=== PATIENT | male | born 1985 | race Caucasian/White ===

== ENCOUNTER 2019-08-01 06:43 | Observation (INO) | payer SELFPAY ==
[~2019-08-01] VITALS: Ht 182.9 cm; Wt 85.4 kg
[2019-08-01 07:21] LABS: HEMOGLOBIN 14.5 g/dl (14.0-18.0); IMMATURE GRANULOCYTES 0.1 % (0.0-5.0); MEAN CELL VOLUME 87.9 fL CALC (80.0-100.0); MEAN CORPUSCULAR HGB 28.3 pG CALC (26.0-32.0); MEAN CORPUSCULAR HGB CONC 32.2 g/L CALC (32.0-36.0); NEUT# 4.81 thou/uL (1.82-7.42); RED BLOOD COUNT 5.12 mill/uL (4.70-6.10); RED CELL DISTRI WIDTH 12.7 % (11.5-15.5)
[2019-08-01] MEDS ORDERED: PROAIR HFA108 MCG/AC IN (07:49)
[2019-08-01 07:50] LABS: ALBUMIN 4.2 g/dL (3.2-5.0); ALKALINE PHOSPHATASE 120 u/l (38-126); ANION GAP 14 (6-22 (CALC)); BILIRUBIN, TOTAL 0.5 mg/dL (0.0-1.4); BUN 19 mg/dL (9-20); BUN/CREATININE RATIO 18 (12-20 (CALC)); CARBON DIOXIDE 31 mmol/l (22-30); CHLORIDE 97 mmol/l (95-108); CREATININE 1.1 mg/dL (0.7-1.3); GFR > 60 ML/MIN (>=60 (CALC)); GFR FOR AFR.AMER. > 60 ML/MIN (>=60 (CALC)); POTASSIUM 4.5 mmol/l (3.5-5.1); SGOT/AST 43 u/l (17-59); SODIUM 138 mmol/l (137-146); TOTAL PROTEIN 7.9 g/dL (6.3-8.2)
[2019-08-01 09:55] LABS: URINE BILIRUBIN - DIPSTICK NEGATIVE (NEGATIVE); URINE BLOOD DIPSTICK NEGATIVE (NEGATIVE); URINE COLOR YELLOW; URINE GLUCOSE - DIPSTICK NEGATIVE (NEGATIVE); URINE KETONE NEGATIVE (NEGATIVE); URINE LEUK ESTERASE NEGATIVE (NEGATIVE); URINE NITRITE - DIPSTICK NEGATIVE (Negative); URINE PROTEIN - DIPSTICK NEGATIVE (NEG-TRACE); URINE SPECIFIC GRAVITY 1.015; URINE UROBILINOGEN - DIPSTICK 0.2 E.U./dL (0.2)
[2019-08-01 10:12] LABS: BARBITURATES NEGATIVE (NEGATIVE); COCAINE NEGATIVE (NEGATIVE); METHADONE NEGATIVE (NEGATIVE); OXCYCODONE NEGATIVE (NEGATIVE); TETRAHYDROCANNABIONOL POSITIVE (NEGATIVE); TRICYLIC ANTIDEPRESSANTS NEGATIVE (NEGATIVE)
[2019-08-01 10:32] VITALS: BP 115/64
[2019-08-01 11:05] VITALS: BP 106/52
[2019-08-01 12:54] VITALS: BP 110/56
[2019-08-01 14:47] VITALS: BP 114/66
[2019-08-01 19:51] VITALS: BP 85/48
[2019-08-02 04:28] VITALS: BP 92/49
[2019-08-02 08:01] VITALS: BP 119/58
[2019-08-02] MEDS ORDERED: NEBULIZER COMPRESSOR (12:52)
[2019-08-02] MEDS ORDERED: PREDNISONE10 MG PO (12:52)
[2019-08-02] MEDS ORDERED: PROVENTIL0.083 % IN (12:52)
[2019-08-02] MEDS ORDERED: ZITHROMAX250 MG PO (12:52)
== END 2019-08-02 13:08 | disposition home or self-care (01) | DRG 203 ==
LOC: ED 06:43 → ED-I 08:38 → ED 08:48 → MS2 08:49
PROVIDERS: Emergency Medicine; ADMIT Internal Medicine; ATTEND Internal Medicine
DX: J45.901 Unspecified asthma with (acute) exacerbation (principal); J02.9 Acute pharyngitis, unspecified; F15.10 Other stimulant abuse, uncomplicated; F17.210 Nicotine dependence, cigarettes, uncomplicated
CPT/HCPCS: G0378

== ENCOUNTER 2019-11-03 15:51 | Observation (INO) | payer SELFPAY ==
[~2019-11-03] VITALS: Ht 182.9 cm; Wt 90.0 kg
[~2019-11-03 15:51] MED LIST: NEBULIZER COMPRESSOR; PREDNISONE10 MG PO; PROAIR HFA108 MCG/AC IN; PROVENTIL0.083 % IN; ZITHROMAX250 MG PO
--- NOTE | 2019-11-03 16:02 | NUR ---
TO ROOM WITH STEADY GAIT
[2019-11-03] MEDS ORDERED: PREDNISONE50 MG PO (16:44)
[2019-11-03] MEDS ORDERED: PROAIR HFA108 MCG/AC PO (16:44)
--- NOTE | 2019-11-03 16:45 | NUR ---
Pt placed on cardiac and SAO2 monitors per EDP order. Charge nurse notified.
--- NOTE | 2019-11-03 17:00 | NUR ---
Reassessment of patient completed. No distress noted. Call joshi within reach. Denies any needs at this time. Will continue to monitor.
--- NOTE | 2019-11-03 17:30 | NUR ---
EDP at bedside to discuss clinical findings with pt
--- NOTE | 2019-11-03 17:45 | NUR ---
Report given to JOLENE Johnson. Care relinquished at this time
--- NOTE | 2019-11-03 18:00 | NUR ---
IV INITIATED AND LABS COLLECTED. PT HAS MINIMAL WHEEZING TO BILATERAL LOWER LOBES.
--- NOTE | 2019-11-03 18:30 | NUR ---
IV FLUIDS AND ABX INITIATED PER ORDERS.
[2019-11-03 18:48] LABS: HEMATOCRIT 44.3 % (39.0-50.0); HEMOGLOBIN 14.6 g/dl (14.0-18.0); IMMATURE GRANULOCYTES 0.2 % (0.0-5.0); MEAN CELL VOLUME 87.5 fL CALC (80.0-100.0); MEAN CORPUSCULAR HGB 28.9 pG CALC (26.0-32.0); NEUT# 2.22 thou/uL (1.82-7.42); RED BLOOD COUNT 5.06 mill/uL (4.70-6.10); RED CELL DISTRI WIDTH 13.2 % (11.5-15.5)
--- NOTE | 2019-11-03 18:57 | NUR ---
RECEIVED REPORT. RECEIVING NEB TREATMENTS
[2019-11-03 19:11] LABS: ANION GAP 13 (6-22 (CALC)); BUN 13 mg/dL (9-20); BUN/CREATININE RATIO 18 (12-20 (CALC)); CARBON DIOXIDE 26 mmol/l (22-30); CHLORIDE 100 mmol/l (95-108); CREATININE 0.7 mg/dL (0.7-1.3); GFR > 60 ML/MIN (>=60 (CALC)); GFR FOR AFR.AMER. > 60 ML/MIN (>=60 (CALC)); POTASSIUM 4.4 mmol/l (3.5-5.1); SODIUM 135 mmol/l (137-146)
--- NOTE | 2019-11-03 19:12 | NUR ---
BEDSIDE REPORT TO JOLENE REED.
--- NOTE | 2019-11-03 19:31 | NUR ---
BOLUS CONTINUES. SECOND ABT INITIATED. PO FLUIDS AND SANDWICH GIVEN. DR MCCOLLUM SAW PT AND PLANS TO ADMIT
--- NOTE | 2019-11-03 20:37 | NUR ---
ASH AND SODA GIVEN PER REQUEST
--- NOTE | 2019-11-03 20:38 | NUR ---
NO ROOMS ON MS. TO REMAIN IN ER AT THIS TIME
--- NOTE | 2019-11-03 21:30 | NUR ---
BEDRESTING. HAS CLOTHES ON. PERIODIC COUGH. NOTED SBP GENERALLY LOW 90'S OR HIGH 80'S. IN REVIEWING PAST CHARTS, THIS IS WHAT HIS DOCUMENTED B/P HAS BEEN. PT ASSYMPTOMATIC FOR HYPOTENSION
--- NOTE | 2019-11-03 22:30 | NUR ---
VOIDED 1200 CLEAR URINE. NO DSITRESS NOTED
--- NOTE | 2019-11-03 23:00 | NUR ---
WHILE IN ER (SINCE 1899) , PT HAD 3 SODA, 1 LARGE CONTAINER OF ICE WATER, 2 SANDWICHES AND VOUDED 1200 CLEAR URINE.
--- NOTE | 2019-11-03 23:43 | NUR ---
REPORT CALLED TO SHERRIE
--- NOTE | 2019-11-03 23:50 | NUR ---
TO ICU VIA W/C
[2019-11-03 23:55] VITALS: BP 95/58
--- NOTE | 2019-11-03 23:55 | NUR ---
PT ARRIVED TO MS2 VIA WHEELCHAIR, PT ORIENTED TO ROOM AND CALL LIGHT, DISCUSSED POC, DISCUSSED FALL RISK, PT DECLINED CHANGING INTO GOWN. CONNECTED TO HEART MONITOR, SPO2 AND BP CUFF, PT ALERT AND ORIENTED X3, NO SIGNS OF DISTRESS NOTED, RESP EVEN AND UNLABORED ON RA. NOTED SCABS TO BLE, PT REFUSED TEDS. ADMISSION ASSESSMENT COMPLETED, CALL LIGHT IN REACH,CONTINUE TO MONITOR. PT GIVEN AMBER SALES.
[2019-11-04 04:00] VITALS: BP 111/60
--- NOTE | 2019-11-04 04:00 | NUR ---
PT RESTING IN BED WATCHING TV, VITALS OBTAINED, PT ASKING WHEN BREAKFAST IS, INFORMED PT THAT BREAKFAST IS AT 7:30, PT VOICES NO NEEDS OR COMPLAINTS AT THIS TIME, CALL LIGHT IN REACH,CONTINUE TO MONITOR.
[2019-11-04 06:00] VITALS: BP 93/47
--- NOTE | 2019-11-04 07:21 | NUR ---
PT REQUEST DOUBLE BREAKFAST THIS MORNING. [place] NOTIFIED.
[2019-11-04 08:00] VITALS: BP 106/49
--- NOTE | 2019-11-04 09:00 | NUR ---
PT BORROWED [employer] FOR HIS HEADPHONES. STATES HE IS MOVING BACK TO [facility].
[2019-11-04] MEDS ORDERED: PREDNISONE10 MG PO (09:22)
[2019-11-04] MEDS ORDERED: AMOXICILLIN500 MG PO (09:22)
--- NOTE | 2019-11-04 10:00 | NUR ---
EDUCATED PT ON DX INSTRUCTIONS, RX x2, & IMPORTANCE ON F/UP CARE.
--- NOTE | 2019-11-04 10:10 | NUR ---
PT AMBULATED OUT THE DOOR WITH BELONGINGS BAG OF TOILETRIES, USING STEADY GAIT, IN STABLE CONDITION.
== END 2019-11-04 10:10 | disposition home or self-care (01) | DRG 203 ==
LOC: ED 15:51 → ED-I 16:23 → ED 16:23 → ED-I 17:37 → ED 19:54 → ICU 19:55
PROVIDERS: Family Medicine; ADMIT Internal Medicine; ATTEND Internal Medicine
DX: J45.901 Unspecified asthma with (acute) exacerbation (principal); J20.9 Acute bronchitis, unspecified; F17.210 Nicotine dependence, cigarettes, uncomplicated; T48.6X6A Underdosing of antiasthmatics, initial encounter; Z91.128 Patient's intentional underdosing of medication regimen for other reason

== ENCOUNTER 2022-02-08 23:12 | Emergency (ER) | payer SELFPAY ==
[~2022-02-08] VITALS: Ht 182.9 cm; Wt 100.0 kg
[~2022-02-08 23:12] MED LIST changes: +AMOXICILLIN500 MG PO; +PREDNISONE50 MG PO; +PROAIR HFA108 MCG/AC PO
[2022-02-08 23:18] VITALS: BP 139/75
[2022-02-08 23:30] VITALS: BP 128/87
[2022-02-08 23:50] LABS: HEMATOCRIT 42.9 % (39.0-50.0); HEMOGLOBIN 14.2 g/dl (14.0-18.0); IMMATURE GRANULOCYTES 0.3 % (0.0-5.0); MEAN CELL VOLUME 91.7 fL CALC (80.0-100.0); MEAN CORPUSCULAR HGB 30.3 pG CALC (26.0-32.0); MEAN CORPUSCULAR HGB CONC 33.1 g/dL CAL (32.0-36.0); NEUT# 3.58 thou/uL (1.82-7.42); RED BLOOD COUNT 4.68 mill/uL (4.70-6.10); RED CELL DISTRI WIDTH 12.1 % (11.5-15.5)
[2022-02-09 00:01] VITALS: BP 113/66
[2022-02-09 00:04] LABS: ALBUMIN 4.4 g/dL (3.2-5.0); ALKALINE PHOSPHATASE 96 u/l (38-126); BILIRUBIN, TOTAL 0.3 mg/dL (0.0-1.4); BUN 16 mg/dL (9-20); BUN/CREATININE RATIO 18 (12-20 (CALC)); CARBON DIOXIDE 30 mmol/l (22-30); CHLORIDE 106 mmol/l (95-108); CREATININE 0.9 mg/dL (0.7-1.3); GFR > 60 ML/MIN (>=60 (CALC)); GFR FOR AFR.AMER. > 60 ML/MIN (>=60 (CALC)); POTASSIUM 3.8 mmol/l (3.5-5.1); SGOT/AST 71 u/l (17-59); TOTAL PROTEIN 8.3 g/dL (6.3-8.2)
[2022-02-09 00:21] LABS: ANION GAP 10 (6-22 (CALC)); SODIUM 142 mmol/l (137-146)
[2022-02-09 00:30] VITALS: BP 115/67
[2022-02-09] MEDS ORDERED: MEDDOSEPAK PO (00:47)
[2022-02-09] MEDS ORDERED: KEFLEX500 MG PO (00:47)
[2022-02-09] MEDS ORDERED: PROAIR HFA IN (00:49)
[2022-02-09] MEDS ORDERED: ROBITUSSIN AC10 ML PO (00:49)
[2022-02-09 01:01] VITALS: BP 112/50
[2022-02-09 01:30] VITALS: BP 112/52
[2022-02-09 01:52] VITALS: BP 112/52
== END 2022-02-09 02:11 | disposition left against medical advice (07) | DRG 203 ==
LOC: ED 23:12
PROVIDERS: Emergency Medicine
DX: J45.901 Unspecified asthma with (acute) exacerbation (principal); F17.200 Nicotine dependence, unspecified, uncomplicated; Z91.19 Patient's noncompliance with other medical treatment and regimen; Z20.822 Contact with and (suspected) exposure to COVID-19